=== PATIENT | male | born 1985 | race African-American/Black ===

== ENCOUNTER 2018-04-27 09:19 | Emergency (ER) | payer OTHER ==
[~2018-04-27] VITALS: Ht 175.3 cm; Wt 79.4 kg
[~2018-04-27 09:19] MED LIST: TRAZ-86 PO
[2018-04-27 09:59] VITALS: BP 132/82
[2018-04-27] MEDS ORDERED: LIDOCAINE (700MG/PATCH) PATCH. TD SCH (11:00)
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
[2018-04-27] MEDS ORDERED: IBUPROFEN 600 MG TABLET. PO ONE (11:30)
[2018-04-27] MEDS ORDERED: lidoderm patch TP (11:43)
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
== END 2018-04-27 11:50 | disposition home or self-care (01) ==
LOC: ER 09:19
DX: S09.93XA Unspecified injury of face, initial encounter (principal); F31.9 Bipolar disorder, unspecified; F20.9 Schizophrenia, unspecified; W21.89XA Striking against or struck by other sports equipment, initial encounter; Y93.89 Activity, other specified; Y99.8 Other external cause status; Y92.89 Other specified places as the place of occurrence of the external cause
CPT/HCPCS: 71101; 99284